=== PATIENT | male | born 1975 | race Caucasian/White ===

== ENCOUNTER 2016-09-01 10:48 | Emergency (ER) | payer BC ==
[2016-09-01 11:16] VITALS: BP 151/96
[2016-09-01] MEDS ORDERED: Lidocaine 1% 50 ML MDV SUBCUT STA (11:21)
--- NOTE | 2016-09-01 11:21 | EDM.PDOC ---
ED HPI GENERAL MEDICAL PROBLEM - General Chief Complaint: Upper Extremity Injury/Pain Stated Complaint: Laceration Time Seen by Provider: 09/01/16 11:10 Source of Information: Reports: Patient, RN notes reviewed History Limitations: Reports: No Limitations - History of Present Illness INITIAL COMMENTS - FREE TEXT/NARRATIVE: 40 year old male presents to the ED with a small laceration to the pad of his right thumb. The injury occurred about 1 hour [employer] while changing a light bulb. The light bulb broke and he is concerned there is glass in the wound. He has some numbness to the tip of his thumb but full ROM and strength. Last tetanus was 4 years ago. He was not electrocuted. Right 1-Thumb Pain Score (Numeric/FACES): 5 - Related Data Allergies Allergy/AdvReac Type Severity Reaction Status Date / Time cephalexin monohydrate Allergy Dizziness Verified 05/28/14 06:39 [From Keflex] Penicillins Allergy Syncope Verified 05/28/14 06:36 venom-honey bee Allergy Airway Verified 05/28/14 06:40 [bee venom (honey bee)] Tightness Home Meds: Home Meds Acetaminophen/oxyCODONE [Percocet 325-5 MG] 1 each PO Q6HR PRN #20 tab 05/28/14 [Rx] Clindamycin Hcl [IJD: Clindamycin HCl] 300 mg PO TID #15 cap 09/01/16 [Rx] Past Medical History - Past Surgical History GI Surgical History: Reports: Appendectomy Musculoskeletal Surgical History: Reports: Carpal tunnel Other Musculoskeletal Surgeries/Procedures:: surgery; shouolder and roatator cuff bilat. release on the right knee several times. Social & Family History - Tobacco Use Smoking Status *Q: Current Every Day Smoker Years of Tobacco use: 10 Packs/Tins Daily: 0.5 - Caffeine Use Caffeine Use: Reports: Energy drinks - Alcohol Use Days Per Week of Alcohol Use: 0 - Recreational Drug Use Recreational Drug Use: No Review of Systems - Review of Systems Review Of Systems: See Below Musculoskeletal: Reports: Other (finger pain) Skin: Reports: Wound Neurological: Reports: Numbness. Denies: Tingling, Weakness Trauma Exam - Physical Exam Exam: See Below Exam Limited By: No Limitations General Appearance: Reports: Alert, WD/WN, No Apparent Distress Extremities: Other (full ROM to right thumb. No tendon injury) Neurologic: Reports: Alert, Normal Mood/Affect, Sensory Deficit (numbness to tip of right thumb ) Skin: Reports: Other (0.5cm laceration to the pad of the right thumb) ED TRAUMA EXTREMITY PROCEDURES - Laceration/Wound Repair Right Finger Lac/wound length in cm: 0.5 Appearance: subcutaneous, linear, clean, other (Hands are very dirty due to the type of work he does) Distal NVT: no tendon injury Anesthetic type: local Local anesthesia - Lidocaine (Xylocaine): 1% plain Local anesthetic volume: 2cc Exploration/Debridement/Repair: wound explored, in a bloodless field, explored to base, no foreign material found Suture size: 4-0 # of sutures: 2 Suture type: nylon, interrupted, simple Sterile dressing applied: nurse Tetanus status addressed: Yes Complications: No Course - Vital Signs Last Recorded V/S: Last Vital Signs Temp 98.3 F 09/01/16 11:15 Pulse 117 H 09/01/16 11:15 Resp 20 09/01/16 11:15 BP 151/96 H 09/01/16 11:15 Pulse Ox 98 09/01/16 11:15 - Orders/Labs/Meds Meds: Medications Discontinued Medications Generic Name Dose Route Start Last Admin Trade Name Freq PRN Reason Stop Dose Admin Lidocaine HCl 50 ml 09/01/16 11:21 09/01/16 11:42 Xylocaine 1% SUBCUT 09/01/16 11:22 50 ml NOW STA Administration - Re-Assessments/Exams Free Text/Narrative Re-Assessment/Exam: Patient felt there was glass in the wound. I thoroughly explored the wound with forceps and was unable to find any foreign material. The wound was closed. Due to the high risk for infection, the place will be placed on antibiotics. Departure - Departure Time of Disposition: 12:00 Disposition: Home, Self-Care 01 Condition: good Clinical Impression: Laceration - Discharge Information Prescriptions: Clindamycin Hcl [IJD: Clindamycin HCl] 300 mg PO TID #15 cap Instructions: Laceration Care, Adult, [id number] Referrals: Diana Batres NP [Primary Care Provider] - Forms: ED Department Discharge Additional Instructions: Laceration with suture repair Try to keep initial dressing in place for 24 hours After 24 hours, you can gently wash the wound with gentle soap and water Do not submerge the area in water until the sutures are out Apply antibiotic ointment and keep the wound covered for first 2-3 days then leave open to air Keep wound covered if there is a chance it can get dirty Sutures need to be removed in 7 days [facility] removes sutures for free. Their hours are 8am-6pm Monday through Monday. Return to clinic if signs or symptoms of infection arise, including increased redness, swelling, drainage, or fever Tylenol or Ibuprofen as needed for pain Clindamycin 300mg 3 times a day for 5 days
== END 2016-09-01 12:10 | disposition home or self-care (01) ==
LOC: JD.ED 10:48
DX: S61.011A Laceration without foreign body of right thumb without damage to nail, initial encounter (principal); F17.210 Nicotine dependence, cigarettes, uncomplicated; Z90.49 Acquired absence of other specified parts of digestive tract; Z98.890 Other specified postprocedural states; Z88.0 Allergy status to penicillin; Z88.1 Allergy status to other antibiotic agents; Z91.030 Bee allergy status; W25.XXXA Contact with sharp glass, initial encounter
CPT/HCPCS: 12001; 99283-25

== ENCOUNTER 2020-04-14 01:02 | Emergency (ER) | payer BC ==
[2020-04-14] MEDS ORDERED: LORazepam 2 MG/ML SDV IVPUSH ONE (01:14)
--- NOTE | 2020-04-14 01:40 | EDM.PDOC ---
ED HPI GENERAL MEDICAL PROBLEM - General Chief Complaint: Behavioral/Psych Stated Complaint: [facility] Time Seen by Provider: 04/14/20 01:02 - History of Present Illness INITIAL COMMENTS - FREE TEXT/NARRATIVE: 44-year-old male brought in by EMS with left-sided neck pain extending into his arm. Patient's had a lot of problems with anxiety and this is really escalated over the last day or so. The patient was in route to the hospital here but did not feel like it was safe for him to drive. He pulled over got out of his car and stumbled to the ground his intent was to flag down a harbor patrol police to help him get to the hospital. The patient denies any injury from stumbling to the ground. Patient does not recall hitting his head. Patient has not had any chest pain but has been under an awful lot of stress his father several years ago from a brain aneurysm he is unemployed and the most recent trigger is has been arguing with his significant other. Apparently there is a strong family history of brain aneurysms. The patient denies any illicit drugs and never drinks alcohol. However he has had a couple of energy drinks this evening. The patient has been given anxiety medications in the past but has not gotten them filled recently he believes he was taking Xanax. He uses occasional pain medications for rare headache. Left Neck Pain Score (Numeric/FACES): 8 - Related Data Allergies Allergy/AdvReac Type Severity Reaction Status Date / Time cephalexin monohydrate Allergy Dizziness Verified 04/14/20 01:08 [From Keflex] Penicillins Allergy Syncope Verified 04/14/20 01:08 venom-honey bee Allergy Airway Verified 04/14/20 01:08 [bee venom (honey bee)] Tightness Home Meds: Home Meds Acetaminophen/oxyCODONE [Percocet 325-5 MG] 1 each PO Q6HR PRN #20 tab 05/28/14 [Rx] LORazepam [Ativan] 1 mg PO Q8H PRN #12 tab 04/14/20 [Rx] Past Medical History - Past Surgical History GI Surgical History: Reports: Appendectomy Musculoskeletal Surgical History: Reports: Carpal Tunnel Other Musculoskeletal Surgeries/Procedures:: surgery; shouolder and roatator cuff bilat. release on the right knee several times. Social & Family History - Tobacco Use Tobacco Use Status *Q: Current Every Day Tobacco User Years of Tobacco use: 18 Packs/Tins Daily: 0.2 - Caffeine Use Caffeine Use: Reports: Energy Drinks - Recreational Drug Use Recreational Drug Use: No ED ROS GENERAL - Review of Systems Review Of Systems: See Below Constitutional: Reports: No Symptoms Respiratory: Reports: No Symptoms Cardiovascular: Denies: No Symptoms, Chest Pain, Palpitations Endocrine: Reports: No Symptoms GI/Abdominal: Reports: No Symptoms : Reports: No Symptoms Musculoskeletal: Reports: Neck Pain, Muscle Pain Skin: Reports: No Symptoms Neurological: Reports: No Symptoms Psychiatric: Reports: Anxiety Hematologic/Lymphatic: Reports: No Symptoms Immunologic: Reports: No Symptoms ED EXAM, GENERAL - Physical Exam Exam: See Below Exam Limited By: No Limitations General Appearance: Alert, No Apparent Distress Eye Exam: Bilateral Eye: Normal Inspection, PERRL Ears: Normal External Exam, Normal Canal, Hearing Grossly Normal, Normal TMs Nose: Normal Inspection, Normal Mucosa, No Blood Throat/Mouth: Normal Inspection, Normal Lips, Normal Teeth, Normal Gums, Normal Oropharynx, Normal Voice, No Airway Compromise Head: Atraumatic, Normocephalic Neck: Normal Inspection, Supple, Non-Tender, Full Range of Motion, Other (Significant muscle spasm in the left paraspinous musculature). No: Lymphadenopathy (L), Lymphadenopathy (R), Tender Midline Respiratory/Chest: No Respiratory Distress, Lungs Clear, Normal Breath Sounds Cardiovascular: Regular Rate, Rhythm, No Edema, No Murmur GI/Abdominal: Normal Bowel Sounds, Soft, Non-Tender Back Exam: Normal Inspection. No: CVA Tenderness (L), CVA Tenderness (R) Extremities: Normal Inspection, No Pedal Edema Neurological: Alert, Oriented, Normal Cognition Psychiatric: Normal Affect, Anxious, Other (Patient has no thoughts of harming himself or anyone else he is never considered suicide.) #1 Interpretation EKG Date: 04/14/20 Rhythm: Other (Mild sinus tach) Rate (Beats/Min): 103 [place]: LAD-Left Mc[place]ur Deviation P-Wave: Present QRS: Other (Q waves inferior) ST-T: Normal QT: Normal Comparison: NA - No Prior EKG EKG Interpretation Comments: Abnormal EKG Course - Vital Signs Last Recorded V/S: Last Vital Signs Temp 37.1 C 04/14/20 01:03 Pulse 105 H 04/14/20 02:09 Resp 16 04/14/20 02:09 BP 159/97 H 04/14/20 02:09 Pulse Ox 98 04/14/20 02:09 - Orders/Labs/Meds Orders: Active Orders 24 hr Category Date Time Status EKG Documentation Completion [RC] STAT Care 04/14/20 01:13 Active Labs: Laboratory Tests 04/14/20 04/14/20 Range/Units 01:25 01:25 WBC 8.05 (4.23-9.07) K/mm3 RBC 5.40 (4.63-6.08) M/mm3 Hgb 16.9 (13.7-17.5) gm/dl Hct 48.7 (40.1-51.0) % MCV 90.2 (79.0-92.2) fl MCH 31.3 (25.7-32.2) pg MCHC 34.7 (32.2-35.5) g/dl RDW Std Deviation 43.0 (35.1-43.9) fL Plt Count 206 (163-337) K/mm3 MPV 10.6 (9.4-12.3) fl Neut % (Auto) 65.0 (34.0-67.9) % Lymph % (Auto) 24.1 (21.8-53.1) % [place] % (Auto) 9.6 (5.3-12.2) % Eos % (Auto) 1.0 (0.8-7.0) Baso % (Auto) 0.2 (0.1-1.2) % Neut # (Auto) 5.23 (1.78-5.38) K/mm3 Lymph # (Auto) 1.94 (1.32-3.57) K/mm3 [place] # (Auto) 0.77 (0.30-0.82) K/mm3 Eos # (Auto) 0.08 (0.04-0.54) K/mm3 Baso # (Auto) 0.02 (0.01-0.08) K/mm3 Sodium 138 (136-145) mEq/L Potassium 3.5 (3.5-5.1) mEq/L Chloride 102 (98-107) mEq/L Carbon Dioxide 24 (21-32) mEq/L Anion Gap 15.5 H (5-15) BUN 13 (7-18) mg/dL Creatinine 1.2 (0.7-1.3) mg/dL Est Cr Clr Drug Dosing 74.97 mL/min Estimated GFR (MDRD) > 60 (>60) mL/min BUN/Creatinine Ratio 10.8 L (14-18) Glucose 111 H (74-106) mg/dL Calcium 9.2 (8.5-10.1) mg/dL Total Bilirubin 0.7 (0.2-1.0) mg/dL AST 30 (15-37) U/L ALT 46 (16-63) U/L Alkaline Phosphatase 74 (46-116) U/L Troponin I 0.025 (0.00-0.056) ng/mL Total Protein 8.0 (6.4-8.2) g/dl Albumin 4.1 (3.4-5.0) g/dl Globulin 3.9 gm/dL Albumin/Globulin Ratio 1.1 (1-2) Meds: Medications Discontinued Medications Generic Name Dose Route Start Last Admin Trade Name Alejandroq PRN Reason Stop Dose Admin Lorazepam 1 mg 04/14/20 01:14 04/14/20 01:29 Ativan IVPUSH 04/14/20 01:15 1 mg ONETIME ONE Administration - Re-Assessments/Exams Free Text/Narrative Re-Assessment/Exam: 04/14/20 02:46 And has done well here in the emergency department his labs are unremarkable EKG shows no acute changes. The patient was given a milligram of Ativan shortly after admission and is done much better his blood pressures come down to systolic at times have been in the 130s. We will discharge home at this time with a prescription for Ativan. Departure - Departure Time of Disposition: 02:47 Disposition: Home, Self-Care 01 Clinical Impression: Anxiety, Neck muscle spasm - Discharge Information Prescriptions: LORazepam [Ativan] 1 mg PO Q8H PRN #12 tab PRN Reason: Anxiety Forms: ED Department Discharge Additional Instructions: Return to the emergency room with any questions problems or worsening symptoms. Follow-up with your regular healthcare provider in the next week or so for recheck your blood pressure. Talk to your healthcare provider about your family history of brain aneurysms. You were given some lorazepam, anxiety medication, take 1/2-1 every 8 hours only as needed for anxiety. This medication can cause some sedation allow 12 hours after using this medication before driving or returning to work. Drink plenty of fluids. However, avoid energy drinks. Sepsis Event Note (ED) - Evaluation Sepsis Screening Result: No Definite Risk - Focused Exam Vital Signs: Vital Signs Temp Pulse Resp BP Pulse Ox 04/14/20 02:09 105 H 16 159/97 H 98 04/14/20 01:03 37.1 C 117 H 12 203/115 H 96 - My Orders Last 24 Hours: My Active Orders 04/14/20 01:13 EKG Documentation Completion [RC] STAT - Assessment/Plan Last 24 Hours: My Active Orders 04/14/20 01:13 EKG Documentation Completion [RC] STAT
[2020-04-14 03:10] VITALS: BP 153/80; PULSE 90
== END 2020-04-14 03:09 | disposition home or self-care (01) ==
LOC: JD.ED 01:02
DX: M62.838 Other muscle spasm (principal); F41.9 Anxiety disorder, unspecified; F17.210 Nicotine dependence, cigarettes, uncomplicated; Z88.1 Allergy status to other antibiotic agents; Z88.0 Allergy status to penicillin; Z91.030 Bee allergy status
CPT/HCPCS: 36415; 80053; 84484; 85025; 93005; 96374; 99284; J2060

== ENCOUNTER 2021-03-23 07:34 | Emergency (ER) | payer BC ==
[2021-03-23 08:03] VITALS: BP 143/106; PULSE 107
[2021-03-23] MEDS ORDERED: Acetaminophen 325 MG Tab PO ONE (08:17)
--- NOTE | 2021-03-23 08:43 | EDM.PDOC ---
ED HPI GENERAL MEDICAL PROBLEM - General Chief Complaint: ENT Problem Stated Complaint: CHEST PAIN Time Seen by Provider: 03/23/21 08:06 Source of Information: Reports: Patient, RN Notes Reviewed - History of Present Illness INITIAL COMMENTS - FREE TEXT/NARRATIVE: 45 yr old male comes in with throat pain. Hx of esophogeal cancer treated with radiation about 6 months ago. Doxycycline prescribed a day or 2 ago. However he only took one dose yesterday, none yet today. No fever or chills. Not coughing, no chest pain. Has not been vomiting. Saw his Oncologist about a week or 2 ago. Throat Pain Score (Numeric/FACES): 8 - Related Data Allergies Allergy/AdvReac Type Severity Reaction Status Date / Time cephalexin monohydrate Allergy Dizziness Verified 03/23/21 08:03 [From Keflex] Penicillins Allergy Syncope Verified 03/23/21 08:03 venom-honey bee Allergy Airway Verified 03/23/21 08:03 [bee venom (honey bee)] Tightness Home Meds: Home Meds Doxycycline Monohydrate 100 mg PO DAILY 03/23/21 [History] oxyCODONE 5 mg PO DAILY 03/23/21 [History] Past Medical History - Past Surgical History HEENT Surgical History: Reports: Other (See Below) Other HEENT Surgeries/Procedures: throat cancer GI Surgical History: Reports: Appendectomy Musculoskeletal Surgical History: Reports: Carpal Tunnel Other Musculoskeletal Surgeries/Procedures:: surgery; shouolder and roatator cuff bilat. release on the right knee several times. Social & Family History - Tobacco Use Tobacco Use Status *Q: Never Tobacco User - Caffeine Use Caffeine Use: Reports: Energy Drinks ED ROS ENT - Review of Systems Review Of Systems: See Below Constitutional: Denies: Fever, Chills, Diaphoresis HEENT: Reports: Throat Pain Respiratory: Denies: Shortness of Breath, Cough Cardiovascular: Denies: Chest Pain GI/Abdominal: Denies: Abdominal Pain, Nausea, Vomiting Musculoskeletal: Denies: Shoulder Pain, Arm Pain, Back Pain Skin: Reports: No Symptoms Neurological: Reports: No Symptoms ED EXAM, ENT - Physical Exam Exam: See Below General Appearance: Alert, No Apparent Distress Mouth/Throat: Normal Inspection. No: Tonsillar Exudates, Tonsillar Swelling Head: Atraumatic Neck: Supple. No: Lymphadenopathy (L), Lymphadenopathy (R) Respiratory/Chest: No Respiratory Distress, Lungs Clear, Normal Breath Sounds Cardiovascular: Tachycardia GI/Abdominal: Soft, Non-Tender Neurological: Alert, Oriented, No Motor/Sensory Deficits Skin: Warm, Dry, Normal Color Course - Vital Signs Last Recorded V/S: Last Vital Signs Temp 97.8 F 03/23/21 07:57 Pulse 107 H 03/23/21 07:57 Resp 18 03/23/21 07:57 BP 143/106 H 03/23/21 07:57 Pulse Ox 99 03/23/21 07:57 - Orders/Labs/Meds Meds: Medications Discontinued Medications Generic Name Dose Route Start Last Admin Trade Name Haley PRN Reason Stop Dose Admin Acetaminophen 975 mg 03/23/21 08:17 03/23/21 08:54 Acetaminophen 325 Mg Tab PO 03/23/21 08:18 975 mg NOW ONE Administration Departure - Departure Time of Disposition: 08:41 Disposition: Home, Self-Care 01 Clinical Impression: Pharyngitis Qualifiers: Pharyngitis/tonsillitis etiology: unspecified etiology Qualified Code(s): J02.9 - Acute pharyngitis, unspecified - Discharge Information Instructions: Pharyngitis, [id number] Referrals: Diana Batres NP [Primary Care Provider] - Forms: ED Department Discharge Additional Instructions: Rest. Drink plenty of fluids. Take the doxycycline as prescribed 100 mg twice daily. As discussed this does take several days to work, take the antibiotic until gone. Tylenol 3 to 4 times daily as needed. Follow up with Dr Blair as needed. Sepsis Event Note (ED) - Evaluation Sepsis Screening Result: No Definite Risk
== END 2021-03-23 08:55 | disposition home or self-care (01) ==
LOC: JD.ED 07:34
DX: J02.9 Acute pharyngitis, unspecified (principal); R00.0 Tachycardia, unspecified; Z88.1 Allergy status to other antibiotic agents; Z88.0 Allergy status to penicillin; Z91.030 Bee allergy status
CPT/HCPCS: 99282; A9270; 99284

== ENCOUNTER 2022-01-08 13:52 | Emergency (ER) | payer BC, OTHER ==
[2022-01-08] MEDS ORDERED: Sodium Chloride 0.9% 10 ML Syringe FLUSH PRN (14:58)
[2022-01-08] MEDS ORDERED: Sodium Chloride 0.9% 1,000 ML IV SCH (15:00)
[2022-01-08 15:51] LABS: ESTIMATED GFR 95 mL/min (>60)
[2022-01-08 16:37] VITALS: BP 133/87; PULSE 108
== END 2022-01-08 16:37 | disposition home or self-care (01) ==
LOC: JD.ED 13:52
DX: F41.9 Anxiety disorder, unspecified (principal); R56.9 Unspecified convulsions; Z91.030 Bee allergy status; Z88.0 Allergy status to penicillin; Z88.1 Allergy status to other antibiotic agents
CPT/HCPCS: 36415; 80053; 85025; 96360; 99284; J3490; J7030; 99283

== ENCOUNTER 2022-03-07 02:18 | Emergency (ER) | payer BC ==
[2022-03-07 02:28] VITALS: BP 184/109; PULSE 115
[2022-03-07 03:17] LABS: ESTIMATED GFR 76 mL/min (>60)
[2022-03-07] MEDS ORDERED: Ketorolac 15 MG/ML SDV IVPUSH ONE (06:11)
== END 2022-03-07 08:10 | disposition home or self-care (01) ==
LOC: JD.ED 02:18
DX: S40.012A Contusion of left shoulder, initial encounter (principal); R56.9 Unspecified convulsions; Z91.030 Bee allergy status; Z88.1 Allergy status to other antibiotic agents; Z88.0 Allergy status to penicillin; Z90.49 Acquired absence of other specified parts of digestive tract; W10.9XXA Fall (on) (from) unspecified stairs and steps, initial encounter
CPT/HCPCS: 36415; 70450; 73030; 80053; 85025; 96374; 99285; J1885

== ENCOUNTER 2022-03-22 18:47 | Emergency (ER) | payer BC ==
[2022-03-22 21:56] VITALS: BP 132/68; PULSE 78
== END 2022-03-22 21:55 | disposition home or self-care (01) ==
LOC: JD.ED 18:47 → SUPCPDRO 18:47 → JD.ED 21:55
DX: R56.9 Unspecified convulsions (principal); K21.9 Gastro-esophageal reflux disease without esophagitis; F17.210 Nicotine dependence, cigarettes, uncomplicated; E66.9 Obesity, unspecified; Z68.31 Body mass index [BMI] 31.0-31.9, adult; Z91.030 Bee allergy status; Z88.1 Allergy status to other antibiotic agents; Z88.0 Allergy status to penicillin; Z79.899 Other long term (current) drug therapy
CPT/HCPCS: 36415; 80053; 80306; 80307; 82550; 83735; 84100; 85025; 99284